=== PATIENT | male | born 1990 | race Caucasian/White ===

== ENCOUNTER 2017-06-28 01:30 | Emergency (ER) | payer OTHER ==
[2017-06-28 02:05] VITALS: BP 148/93; PULSE 94; TEMP 98.3; BMI 23.0
[2017-06-28] MEDS ORDERED: KETOROLAC TROMETHAMINE 30 MG/1 ML VIAL IM ONE (02:55)
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
[2017-06-28] MEDS ORDERED: KETOROLAC TROMETHAMINE 30 MG/1 ML VIAL ONE (03:34)
== END 2017-06-28 06:15 | disposition left against medical advice (07) ==
LOC: JER 01:30
DX: Z53.21 Procedure and treatment not carried out due to patient leaving prior to being seen by health care provider (principal)
CPT/HCPCS: 99282-25